=== PATIENT | male | born 1950 | race Native Hawaiian/Other Pacific Islander ===

== ENCOUNTER 2017-06-10 11:39 | Emergency (ER) | payer OTHER ==
[~2017-06-10] VITALS: Ht 170.2 cm; Wt 88.0 kg
[~2017-06-10 11:39] MED LIST: CARD2TAB PO; DULO1CAP PO; LISI20TA3 PO
[2017-06-10] MEDS ORDERED: DOXA4TAB3 PO (11:54)
[2017-06-10 11:55] VITALS: BP 155/91; PULSE 100; RESP 18; TEMP 98.3; O2SAT 96
--- NOTE | 2017-06-10 12:12 | PD ---
HPI Chief Complaint: Complaint Time Seen by Provider: 11:54 Travel History International Travel<30 days: No Contact w/Intl Traveler<30days: No Traveled to known affect area: No History of Present Illness HPI 67-year-old male here for evaluation of scrotal and penile edema and pruritus. The patient reports that while in bed last night he began to have intense pruritus to his scrotum. He proceeded to scratch this area and took Benadryl. When he will do this morning he noticed scrotal swelling and penile swelling. He denies pain. He took another Benadryl this morning. He does not have any known allergies. He states that about 3 weeks ago when he woke up in the morning he had upper lip swelling that resolved after taking Benadryl. He is on lisinopril. He denies abdominal pain. He is and is in a monogamous relationship. He has history of enlarged prostate and was started on doxazosin by his urologist Dr. Newell a couple of weeks ago. PFSH Past Medical History Depression: Yes Cancer: No Cardiovascular Problems: Yes High Cholesterol: Yes Diminished Hearing: No Hepatitis: No Hiatal Hernia: No Hypertension: Yes Medical other: Yes (BPH, CERVICAL RADICULOPATHY, ) Respiratory: Yes (SINUSITIS, OBSTRUCTIVE SLEEP APNEA) Immunizations Current: Yes Thyroid Disease: No Tetanus Vaccination: Unknown Influenza Vaccination: Yes Past Surgical History Abdominal Surgery: Yes (RIGHT INGUINAL HERNIA REPAIR) Social History Alcohol Use: No Tobacco Use: Yes (10 CIGS DAY) Substance Use: No Allergies-Medications (Allergen,Severity, Reaction): Coded Allergies: No Known Allergies (Unverified Adverse Reaction, Unknown, 06/10/17) Reported Meds & Prescriptions Reported Meds & Active Scripts Active Reported Doxazosin (Doxazosin Mesylate) 4 Mg Tab 4 Mg PO DAILY Lisinopril-Hctz 20-25 Mg Tab 0.5 Tab PO DAILY Duloxetine DR (Duloxetine HCl) 20 Mg Capdr 40 Mg PO DAILY Review of Systems Except as stated in HPI: all other systems reviewed are Neg Physical Exam Narrative GENERAL: Well-developed, well-nourished, comfortable, no apparent distress. SKIN: Focused skin assessment warm/dry. HEAD: Atraumatic. Normocephalic. EYES: Pupils equal and round. No scleral icterus. No injection or drainage. ENT: Mucous membranes pink and moist. NECK: Trachea midline. No JVD. CARDIOVASCULAR: Regular rate and rhythm. RESPIRATORY: No accessory muscle use. Clear to auscultation. Breath sounds equal bilaterally. GASTROINTESTINAL: Abdomen soft, non-tender, nondistended. : Moderate penile edema. Moderate scrotal edema. No crepitus. No warmth or erythema. No tenderness. MUSCULOSKELETAL: No obvious deformities. No clubbing. No cyanosis. No edema. NEUROLOGICAL: Awake and alert. No obvious cranial nerve deficits. Motor grossly within normal limits. Normal speech. PSYCHIATRIC: Appropriate mood and affect; insight and judgment normal. Data Data Last Documented VS Vital Signs Date Time Temp Pulse Resp B/P (MAP) Pulse Ox O2 Delivery O2 Flow Rate FiO2 06/10/17 13:07 97 Room Air 06/10/17 11:55 98.3 100 18 155/91 (112) Orders Orders Complete Blood Count With Diff (06/10/17 12:08) Comprehensive Metabolic Panel (06/10/17 12:08) Ecg Monitoring (06/10/17 12:08) Iv Access Insert/Monitor (06/10/17 12:08) Oximetry (06/10/17 12:08) Diphenhydramine Inj (Benadryl Inj) (06/10/17 12:15) Methylprednisolone So Succ Inj (Solumedr (06/10/17 12:15) Famotidine Inj (Pepcid Inj) (06/10/17 12:15) Sodium Chloride 0.9% Flush (Ns Flush) (06/10/17 12:15) Us Testicles W Doppler (06/10/17 ) Urinalysis - C+S If Indicated (06/10/17 12:08) Labs Laboratory Tests Test 06/10/17 12:30 06/10/17 12:55 Urine Collection Type CLEAN CATCH Urine Color YELLOW Urine Turbidity CLEAR Urine pH 6.0 Urine Specific [place] 1.018 Urine Protein NEG mg/dL Urine Glucose (UA) NEG mg/dL Urine Ketones NEG mg/dL Urine Occult Blood NEG Urine Nitrite NEG Urine Bilirubin NEG Urine Leukocyte Esterase NEG Urine Squamous Epithelial Cells 0-5 /hpf Urine Amorphous Sediment FEW Microscopic Urinalysis Comment CULT NOT INDICATED Urine Collection Time 1230 White Blood Count 8.0 TH/MM3 Red Blood Count 5.16 MIL/MM3 Hemoglobin 14.3 GM/DL Hematocrit 43.9 % Mean Corpuscular Volume 85.1 FL Mean Corpuscular Hemoglobin 27.8 PG Mean Corpuscular Hemoglobin Concent 32.7 % Red Cell Distribution Width 13.6 % Platelet Count 293 TH/MM3 Mean Platelet Volume 7.8 FL Neutrophils (%) (Auto) 63.7 % Lymphocytes (%) (Auto) 23.0 % Monocytes (%) (Auto) 10.1 % Eosinophils (%) (Auto) 2.8 % Basophils (%) (Auto) 0.4 % Neutrophils # (Auto) 5.2 TH/MM3 Lymphocytes # (Auto) 1.8 TH/MM3 Monocytes # (Auto) 0.8 TH/MM3 Eosinophils # (Auto) 0.2 TH/MM3 Basophils # (Auto) 0.0 TH/MM3 CBC Comment DIFF FINAL Differential Comment Blood Urea Nitrogen 14 MG/DL Creatinine 0.84 MG/DL Random Glucose 84 MG/DL Total Protein 6.9 GM/DL Albumin 3.7 GM/DL Calcium Level 8.6 MG/DL Alkaline Phosphatase 71 U/L Aspartate Amino Transf (AST/SGOT) 21 U/L Alanine Aminotransferase (ALT/SGPT) 29 U/L Total Bilirubin 0.4 MG/DL Sodium Level 137 MEQ/L Potassium Level 4.1 MEQ/L Chloride Level 105 MEQ/L Carbon Dioxide Level 25.1 MEQ/L Anion Gap 7 MEQ/L Estimat Glomerular Filtration Rate 92 ML/MIN MDM Medical Decision Making Medical Screen Exam Complete: Yes Emergency Medical Condition: Yes Differential Diagnosis Allergic reaction, testicular edema, penile edema, [place] gangrene unlikely, testicular torsion, epididymitis Narrative Course Vital signs reviewed. CBC is unremarkable. CMP is unremarkable. UA is not suggestive of UTI. Scrotal ultrasound: The intra-testicular exam is normal. Small bilateral hydroceles. Patient was made aware of all findings. He is resting comfortably. He denies any pain. He was given IV Solu-Medrol, IV Benadryl, and IV Pepcid. His symptoms of swelling remained about the same as when he first presented. There are no signs to suggest Fourniere's gangrene. He does state that his scrotum was significantly more swollen last night. At this point my plan is to discharge him home with a prescription for 50 mg of prednisone daily for 5 days and have him take Benadryl as needed for pruritus. He was advised to follow-up with his urologist Dr. Newell this week. He was informed on when to return to the emergency department. He verbalizes understanding and agreement with plan. Diagnosis Primary Impression: Penile edema Additional Impression: Scrotal edema Referrals: Jorge Luis Newell DO 3 days Additional Instructions: Follow-up with your urologist Dr. Newell this week. Return to the emergency department for worsening symptoms or any other concerns as discussed. Scripts Prednisone (Prednisone) 50 Mg Tab 50 MG PO DAILY for 5 Days, #5 TAB 0 Refills Prov: Dhruv Rizzo MD 06/10/17 Disposition: 01 DISCHARGE HOME Condition: Stable Dhruv Rizzo MD Jun 10, 2017 12:12
[2017-06-10] MEDS ORDERED: methylPREDNISolone SOD SUCC 125 MG/2 ML VIAL IV PUSH ONE (12:15)
[2017-06-10] MEDS ORDERED: SODIUM CHLORIDE 0.9% FLUSH 10 ML FLUSH IV FLUSH PRN (12:15)
[2017-06-10] MEDS ORDERED: diphenhydrAMINE HCL 50 MG/ML VIAL IVP ONE (12:15)
[2017-06-10] MEDS ORDERED: FAMOTIDINE 20 MG/2 ML VIAL IV PUSH ONE (12:15)
[2017-06-10 12:49] LABS: BILIRUBIN, URINE NEG (NEG); BLOOD, URINE NEG (NEG); GLUCOSE,URINE NEG (NEG); KETONE, URINE NEG (NEG); NITRITE,URINE NEG (NEG); URINE LEUKOCYTE ESTERASE NEG (NEG)
[2017-06-10 12:58] LABS: AMORPHOUS SEDIMENT, URINE FEW; SQUAMOUS EPITHELIAL CELL URINE 0-5 /hpf (0-5); URINE COLOR YELLOW (YELLW/STRAW)
[2017-06-10 12:59] LABS: AUTOMATED NEUTROPHIL # 5.2 TH/MM3 (1.8-7.7); BASOPHIL % 0.4 % (0.0-2.0); EOSINOPHIL # 0.2 TH/MM3 (0-0.4); EOSINOPHIL % 2.8 % (0.0-4.0); HEMATOCRIT 43.9 % (39.0-51.0); HEMOGLOBIN 14.3 GM/DL (13.0-17.0); LYMPHOCYTE # 1.8 TH/MM3 (1.0-4.8); MEAN CELL VOLUME 85.1 FL (80.0-100.0); MEAN CORPUSCULAR HEMOGLOBIN 27.8 PG (27.0-34.0); MEAN CORPUSCULAR HGB CONC 32.7 % (32.0-36.0); MEAN PLATELET VOLUME 7.8 FL (7.0-11.0); MONO % 10.1 % (0.0-8.0); MONOCYTE # 0.8 TH/MM3 (0-0.9); NEUT % 63.7 % (16.0-70.0); PLATELET COUNT 293 TH/MM3 (150-450); RED BLOOD COUNT 5.16 MIL/MM3 (4.50-5.90); RED CELL DISTRIBUTION WIDTH 13.6 % (11.6-17.2)
--- NOTE | 2017-06-10 13:02 | RADRPT ---
EXAM DATE/TIME: 06/10/2017 12:26 [facility] COMPARISON: No previous studies available for comparison. INDICATIONS : Testicular pain. MEDICAL HISTORY : Hypercholesterolemia. Hypertension. Sinusitis. Obstructive sleep apnea. BPH. Cervical radiculopathy. Depression. Tobacco use. SURGICAL HISTORY : Right inguinal hernia repair. ENCOUNTER: Initial ACUITY: 4 - 6 days PAIN SCORE: 2/10 LOCATION: Bilateral scrotum. MEASUREMENTS: RIGHT TESTICLE: 4.9 x 3.5 x 2.4cm LEFT TESTICLE: 4.7 x 3.8 x 2.3cm FINDINGS: RIGHT TESTICLE: Homogeneous echotexture without intra or extratesticular mass. Blood flow is symmetric and within no rmal limits. Small hydrocele and small varicocele. Epididymis is within normal limits. LEFT TESTICLE: Homogeneous echotexture without intra or extratesticular mass. Blood flow is symmetric and within no rmal limits. Small hydrocele without significant varicocele. Epididymis is within normal limits. SCROTUM: Within normal limits. CONCLUSION: The intratesticular exam is normal. Small bilateral hydroceles. Mook Torres MD on June 10, 2017 at 13:00 Board Certified Radiologist. This report was verified electronically.
[2017-06-10 13:05] VITALS: BP 125/69; PULSE 73; RESP 16; O2SAT 99
[2017-06-10 13:07] VITALS: O2SAT 97
[2017-06-10 13:07] LABS: CHLORIDE 105 MEQ/L (98-107); SODIUM (NA) 137 MEQ/L (136-145)
[2017-06-10 13:11] LABS: ALBUMIN 3.7 GM/DL (3.4-5.0); BICARBONATE 25.1 MEQ/L (21.0-32.0); BLOOD UREA NITROGEN 14 MG/DL (7-18); CALCIUM 8.6 MG/DL (8.5-10.1); GLUCOSE,RANDOM 84 MG/DL (74-106)
[2017-06-10 13:14] LABS: ALT (GPT) 29 U/L (12-78); AST (GOT) 21 U/L (15-37); CREATININE 0.84 MG/DL (0.60-1.30); GLOMERULAR FILTRATION RATE 92 ML/MIN (>89)
[2017-06-10 13:16] LABS: TOTAL BILIRUBIN ADULT 0.4 MG/DL (0.2-1.0); TOTAL PROTEIN 6.9 GM/DL (6.4-8.2)
[2017-06-10 13:17] LABS: ALKALINE PHOSPHATASE 71 U/L (45-117)
[2017-06-10] MEDS ORDERED: PRED50 PO (13:49)
[2017-06-10 13:56] VITALS: BP 118/69
== END 2017-06-10 14:02 | disposition home or self-care (01) ==
LOC: PHED 11:39
DX: N43.3 Hydrocele, unspecified (principal); N50.89 Other specified disorders of the male genital organs; N48.89 Other specified disorders of penis; F32.9 Major depressive disorder, single episode, unspecified; E78.00 Pure hypercholesterolemia, unspecified; I10 Essential (primary) hypertension; N40.0 Benign prostatic hyperplasia without lower urinary tract symptoms; G47.33 Obstructive sleep apnea (adult) (pediatric); F17.210 Nicotine dependence, cigarettes, uncomplicated
CPT/HCPCS: 76870; 80053; 81001; 85025; 93975; 96374; 96375; 99284; J1200; J2930